=== PATIENT | female | born 1985 | race Caucasian/White ===

== ENCOUNTER → 2017-01-06 | Outpatient (CLI) | payer OTHER ==
[~2017-01-06] MED LIST: IBU600 MG PO; PERCOCET 325 MG1 TA2 PO; PRENATAL MVI
== END ==
LOC: SUN.DIA 08:45
DX: O24.419 Gestational diabetes mellitus in pregnancy, unspecified control (principal); Z3A.34 34 weeks gestation of pregnancy; Z71.3 Dietary counseling and surveillance
CPT/HCPCS: G0108

== ENCOUNTER 2017-02-16 08:50 | Inpatient (IN) | payer OTHER ==
[~2017-02-16] VITALS: Ht 167.6 cm; Wt 143.6 kg
[2017-02-16] VITALS (19 sets, daily range): BP systolic 89–135; BP diastolic 51–77; PULSE 73–91; TEMP 97.6–98.7
[2017-02-16] MEDS ORDERED: PRENATAL MVI (09:10)
[2017-02-16 10:13] LABS: BASO % 0.1 % (0.0-2.0); EOS # 0.1 (0.0-0.7); EOS % 1.4 % (0-4.0); GRAN # 4.9 (1.4-6.5); GRAN % 70.2 % (42.2-75.2); HEMOGLOBIN 12.2 g/dl (12.5-16.0); LYMPH # 1.4 (1.2-3.4); LYMPH % 19.5 % (20.0-51.0); MEAN CELL VOLUME 90 fl (80.0-100.0); MEAN CORPUSCULAR HEMOGLOBIN 31 pg (27.0-31.0); MEAN CORPUSCULAR HGB CONC 34 g/dl (33.0-37.0); MEAN PLATELET VOLUME 13.8 fl (7.4-10.4); MONO # 0.6 (0.1-0.6); MONO % 7.9 % (1.7-9.3); PLATELET COUNT 180 K/mm3 (130-400); RED BLOOD COUNT 3.99 M/mm3 (4.10-5.30); REDCELL DISTRIBUTION WIDTH-CV 12.6 % (11.5-14.5)
[2017-02-16 10:21] LABS: HEMATOCRIT 35.7 % (37.0-47.0)
[2017-02-17 07:11] VITALS: BP 110/60; PULSE 88
[2017-02-17 09:56] LABS: BASO % 0.4 % (0.0-2.0); EOS # 0.1 (0.0-0.7); EOS % 1.8 % (0-4.0); GRAN # 5.9 (1.4-6.5); GRAN % 74.2 % (42.2-75.2); LYMPH # 1.3 (1.2-3.4); MEAN CELL VOLUME 92 fl (80.0-100.0); MEAN CORPUSCULAR HGB CONC 33 g/dl (33.0-37.0); MEAN PLATELET VOLUME 13.6 fl (7.4-10.4); MONO # 0.6 (0.1-0.6); MONO % 7.2 % (1.7-9.3); PLATELET COUNT 167 K/mm3 (130-400); REDCELL DISTRIBUTION WIDTH-CV 12.9 % (11.5-14.5)
[2017-02-17 10:09] LABS: HEMATOCRIT 31.1 % (37.0-47.0); HEMOGLOBIN 10.3 g/dl (12.5-16.0); MEAN CORPUSCULAR HEMOGLOBIN 30 pg (27.0-31.0)
[2017-02-17] MEDS ORDERED: IBU600 MG PO (11:24)
[2017-02-17] MEDS ORDERED: PERCOCET 325 MG1 TA2 PO (11:24)
[2017-02-17 17:05] VITALS: BP 130/79; PULSE 100
[2017-02-17 22:30] VITALS: BP 109/64; PULSE 90; TEMP 98.9
[2017-02-18 07:00] VITALS: BP 118/72; PULSE 98; TEMP 97.8
== END 2017-02-18 12:15 | disposition home or self-care (01) | DRG 766 ==
LOC: LDRO 08:50 → LDR 09:30 → OB 09:30 → LDRO 02-26 11:23
PROVIDERS: Obstetrics & Gynecology
PROC: 10D00Z1 Extraction of Products of Conception, Low, Open Approach (ICD-10-PCS; principal; 2017-02-16)
DX: O75.82 Onset (spontaneous) of labor after 37 completed weeks of gestation but before 39 completed weeks gestation, with delivery by (planned) cesarean section (principal); O34.211 Maternal care for low transverse scar from previous cesarean delivery; N85.8 Other specified noninflammatory disorders of uterus; O24.420 Gestational diabetes mellitus in childbirth, diet controlled; Z3A.38 38 weeks gestation of pregnancy; Z37.0 Single live birth
CPT/HCPCS: J0690; J1885; J2270; J2370; J2405; J2590; J7120

== ENCOUNTER 2018-08-23 11:36 | Emergency (ER) | payer OTHER ==
[~2018-08-23] VITALS: Ht 167.6 cm; Wt 123.6 kg
[2018-08-23 11:43] VITALS: TEMP 98.6
[2018-08-23 12:52] LABS: BASO % 0.1 % (0.0-2.0); EOS # 0.1 (0.0-0.7); EOS % 0.9 % (0-4.0); GRAN # 5.7 (1.4-6.5); GRAN % 74.4 % (42.2-75.2); HEMATOCRIT 37.5 % (37.0-47.0); HEMOGLOBIN 13.1 g/dl (12.5-16.0); LYMPH # 1.3 (1.2-3.4); LYMPH % 17.4 % (20.0-51.0); MEAN CELL VOLUME 84 fl (80.0-100.0); MEAN CORPUSCULAR HEMOGLOBIN 29 pg (27.0-31.0); MEAN CORPUSCULAR HGB CONC 35 g/dl (33.0-37.0); MEAN PLATELET VOLUME 11.9 fl (7.4-10.4); MONO # 0.5 (0.1-0.6); MONO % 6.8 % (1.7-9.3); PLATELET COUNT 232 K/mm3 (130-400); RED BLOOD COUNT 4.48 M/mm3 (4.10-5.30); REDCELL DISTRIBUTION WIDTH-CV 13.4 % (11.5-14.5)
[2018-08-23 12:56] LABS: ACETAMINOPHEN < 10 ug/mL (10-30); ALANINE AMINOTRANSFERASE 17 U/L (9-52); ALBUMIN 3.8 gm/dL (3.5-5.0); ALCOHOL(ethanol),MEDICAL < 10 mg/dL; ALKALINE PHOSPHATASE 67 U/L (50-136); ANION GAP 6 mmol/L (7-16); AST,SGOT 14 U/L (15-37); BILIRUBIN,TOTAL 0.3 mg/dL (0.0-1.0); BLOOD UREA NITROGEN 4 mg/dL (7-17); CALCIUM 9.6 mg/dL (8.4-10.2); CARBON DIOXIDE 23 mmol/L (22-30); CHLORIDE 109 mmol/L (98-107); CREATININE, serum 0.49 mg/dL (0.52-1.25); GLUCOSE 115 mg/dL (74-106); SALICYLATE < 1.0 mg/dL; SODIUM 138 mmol/L (137-145); TOTAL PROTEIN 7.4 gm/dL (6.4-8.2)
[2018-08-23 13:39] LABS: COLLECTION METHOD CLEAN CATCH
[2018-08-23 13:55] LABS: MUCOUS Present /lpf; PH 5 (5-8); URINE APPEARANCE Hazy; URINE BACTERIA Rare /hpf; URINE BILIRUBIN Negative (NEGATIVE); URINE BLOOD Negative (NEGATIVE); URINE COLOR Yellow; URINE GLUCOSE Negative (NEGATIVE); URINE KETONE 2+ (NEGATIVE); URINE LEUKOCYTE ESTERASE Negative (NEGATIVE); URINE NITRATE Negative (NEGATIVE); URINE PROTEIN(semi-quant) Negative (NEGATIVE); URINE RBC 0-2 /hpf; URINE UROBILINOGEN Negative (NEGATIVE)
[2018-08-23 14:09] LABS: TRICYCLIC ANTIDEPRESS URINE NEGATIVE
[2018-08-23] MEDS ORDERED: PROZAC 20MG20 MG PO (16:22)
[2018-08-23 16:46] VITALS: BP 129/79; PULSE 88
--- NOTE | 2018-08-24 07:59 | NUR ---
on 08/23/18, social sciences professor contacted Astrid with [facility] and requested patient's spouse be notified of patient's ED admit and his presence. Spouse was able to leave his duty at [facility] and will be able to be with patient.
== END 2018-08-23 16:46 | disposition home or self-care (01) ==
LOC: COL.ER 11:36
PROVIDERS: Nurse Practitioner
DX: O99.342 Other mental disorders complicating pregnancy, second trimester (principal); F32.9 Major depressive disorder, single episode, unspecified; Z98.890 Other specified postprocedural states; Z90.49 Acquired absence of other specified parts of digestive tract; Z3A.17 17 weeks gestation of pregnancy

== ENCOUNTER → 2018-09-13 | Outpatient (CLI) | payer OTHER ==
[~2018-09-13] MED LIST changes: +PROZAC 20MG20 MG PO
== END ==
LOC: SUN.DIA 12:37
DX: O24.419 Gestational diabetes mellitus in pregnancy, unspecified control (principal); Z3A.21 21 weeks gestation of pregnancy
CPT/HCPCS: G0108

== ENCOUNTER → 2018-10-08 | Outpatient (CLI) | payer OTHER | LOC: SUN.DIA 09-23 11:47 | DX: O24.419 Gestational diabetes mellitus in pregnancy, unspecified control (principal); Z3A.24 24 weeks gestation of pregnancy | CPT/HCPCS: G0108 ==

== ENCOUNTER → 2018-10-12 | Outpatient (CLI) | payer OTHER | LOC: SUN.DIA 08:34 | DX: O24.419 Gestational diabetes mellitus in pregnancy, unspecified control (principal); Z3A.25 25 weeks gestation of pregnancy ==

== ENCOUNTER 2018-10-20 14:59 | Emergency (ER) | payer OTHER ==
[~2018-10-20] VITALS: Ht 167.6 cm; Wt 136.8 kg
[2018-10-20 15:01] VITALS: BP 142/65; TEMP 97.8
[2018-10-20 15:57] LABS: BASO % 0.3 % (0.0-2.0); EOS # 0.1 (0.0-0.7); EOS % 0.9 % (0-4.0); GRAN # 5.6 (1.4-6.5); GRAN % 73.3 % (42.2-75.2); HEMATOCRIT 35.6 % (37.0-47.0); HEMOGLOBIN 11.9 g/dl (12.5-16.0); LYMPH # 1.3 (1.2-3.4); LYMPH % 16.8 % (20.0-51.0); MEAN CELL VOLUME 90 fl (80.0-100.0); MEAN CORPUSCULAR HEMOGLOBIN 30 pg (27.0-31.0); MEAN CORPUSCULAR HGB CONC 33 g/dl (33.0-37.0); MEAN PLATELET VOLUME 11.5 fl (7.4-10.4); MONO # 0.6 (0.1-0.6); PLATELET COUNT 236 K/mm3 (130-400); RED BLOOD COUNT 3.97 M/mm3 (4.10-5.30); REDCELL DISTRIBUTION WIDTH-CV 13.3 % (11.5-14.5)
[2018-10-20 16:12] LABS: ALANINE AMINOTRANSFERASE 16 U/L (9-52); ALBUMIN 3.7 gm/dL (3.5-5.0); ALKALINE PHOSPHATASE 85 U/L (50-136); ANION GAP 6 mmol/L (7-16); AST,SGOT 20 U/L (15-37); BILIRUBIN,TOTAL 0.3 mg/dL (0.0-1.0); BLOOD UREA NITROGEN 3 mg/dL (7-17); CALCIUM 9.2 mg/dL (8.4-10.2); CARBON DIOXIDE 23 mmol/L (22-30); CHLORIDE 106 mmol/L (98-107); CREATININE, serum 0.45 mg/dL (0.52-1.25); GLUCOSE 96 mg/dL (74-106); POTASSIUM 3.8 mmol/L (3.4-5.0); SODIUM 136 mmol/L (137-145); TOTAL PROTEIN 7.3 gm/dL (6.4-8.2)
[2018-10-20 16:16] LABS: ACETAMINOPHEN < 10 ug/mL (10-30); ALCOHOL(ethanol),MEDICAL < 10 mg/dL; SALICYLATE < 1.0 mg/dL
--- NOTE | 2018-10-20 16:54 | NUR ---
AARON and AARON partida responded to ED consult and met with the patient and her four children. At this time, the patient is living alone on [address] with her four children. Her children are 8, 6, 3, 1, and she is now twenty-six weeks . Her , Dewayne, is in the army and is in [place] for work at this time. The patient reports that she does not have any other family/friend support around here. She states that all her family is back in [place]. The patient reports that she came to our ED in the past, due to thoughts of suicide. The patient reports that she is not suicidal or has any thoughts of harm at this time. She states that she was seeing a therapist, Domenica, at [facility] in the past and would be open to going back to [facility]. Screeners from [facility] soon arrived to meet with the patient. AARON and AARON partida attended to the patient's children. After meeting with the patient, the screeners are setting up an outpatient appointment for the patient at [facility]. The patient did request that the ED doctor contact her 's commander. AARON informed the doctor. The ED doctor and the [facility] Screener report that they can write a note for the patient for her to provide to the 's commander. No additional needs at this time.
--- NOTE | 2018-10-20 17:30 | NUR ---
Hayde RN and Rik Hernandez RN to ER to obtain FHR strip. Patient is a G5L4 at 25.6 weeks gestation who presents with complaints of "I'm having a mental breakdown". Patient states her is in [place] with and will be gone for one month. She states she "has no help at home and I just can't take it anymore." When asked about past history patient states she has had anxiety/depression in the past and was on medication for PPD with three year old following delivery. Patient states she has an appt at [facility] tomorrow morning. Denies OB complaints, reports normal movement. Patient encouraged to follow up at [facility] tomorrow and with Dr. Hernandez as scheduled. Difficulty tracing FHR strip continuously due to maternal habitus and movement. Appropriate strip for gestation obtained, verified by 2 RNs. Cleared per OB.
[2018-10-20 18:10] VITALS: PULSE 109
--- NOTE | 2018-10-21 13:07 | NUR ---
AARON rec'd call from patient in regards to a call needing to be made to the [facility]. AARON contacted patient's husbands commander and he provided the information about the that the [facility] cross would need. AARON then contacted the [facility] cross to put a message in. [facility] case #[id number]. AARON also contacted patient again and informed her the message was submitted.
--- NOTE | 2018-10-22 15:06 | NUR ---
The patient contacted the hospital, via phone, and requested to speak to a SW. AARON then contacted the patient. The patient reports that she just got out of her appointment at [facility] and is sitting in her car with her children. SW could here childen in the background. The patient reports that the request to the [place], for the patient's to return home was denied. The patient reports that she feels alone and has no support here. She states that she does not keep in contact with her family in [place] and that her is unable to use his phone. The patient reports that she feels just like she did right before coming into the hospital in the past, due to thoughts of suicide. AARON then notified [facility] [employer]. [facility] was able to locate the patient and they were going to meet the patient and her children in [place]. The dispatcher informed SW that they then might transfer her to [facility] or [facility]. AARON had also contacted [facility] to try and locate the patient. AARON spoke to Benji, Crisis Stablization Marketing Support Assistant. Benji reports that she was the one who met with her for her appointment today, 10/22. Benji reports that the patient was doing fine when she left. Benji reports that he recommends that the patient utilize services on [place] and for the patient to reach out to her family is [place].
== END 2018-10-20 18:13 | disposition home or self-care (01) ==
LOC: COL.ER 14:59
PROVIDERS: Emergency Medicine
DX: O99.342 Other mental disorders complicating pregnancy, second trimester (principal); F32.9 Major depressive disorder, single episode, unspecified; Z91.5 Personal history of self-harm; Z3A.26 26 weeks gestation of pregnancy

== ENCOUNTER 2018-10-22 15:30 | Emergency (ER) | payer OTHER ==
[~2018-10-22] VITALS: Ht 167.6 cm; Wt 136.8 kg
[2018-10-22 16:03] VITALS: TEMP 98.6
[2018-10-22 16:54] LABS: BASO % 0.2 % (0.0-2.0); EOS # 0.1 (0.0-0.7); EOS % 1.4 % (0-4.0); GRAN # 6.4 (1.4-6.5); GRAN % 68.5 % (42.2-75.2); HEMATOCRIT 36.9 % (37.0-47.0); HEMOGLOBIN 12.2 g/dl (12.5-16.0); LYMPH % 21.3 % (20.0-51.0); MEAN CELL VOLUME 90 fl (80.0-100.0); MEAN CORPUSCULAR HEMOGLOBIN 30 pg (27.0-31.0); MEAN CORPUSCULAR HGB CONC 33 g/dl (33.0-37.0); MONO # 0.7 (0.1-0.6); PLATELET COUNT 242 K/mm3 (130-400); RED BLOOD COUNT 4.08 M/mm3 (4.10-5.30); REDCELL DISTRIBUTION WIDTH-CV 13.2 % (11.5-14.5)
[2018-10-22 17:05] LABS: ALANINE AMINOTRANSFERASE 13 U/L (9-52); ALBUMIN 3.7 gm/dL (3.5-5.0); ALKALINE PHOSPHATASE 81 U/L (50-136); ANION GAP 9 mmol/L (7-16); AST,SGOT 15 U/L (15-37); BILIRUBIN,TOTAL 0.3 mg/dL (0.0-1.0); BLOOD UREA NITROGEN 3 mg/dL (7-17); CALCIUM 9.2 mg/dL (8.4-10.2); CARBON DIOXIDE 21 mmol/L (22-30); CHLORIDE 107 mmol/L (98-107); CREATININE, serum 0.43 mg/dL (0.52-1.25); GLUCOSE 89 mg/dL (74-106); POTASSIUM 3.8 mmol/L (3.4-5.0); SODIUM 137 mmol/L (137-145); TOTAL PROTEIN 7.3 gm/dL (6.4-8.2)
[2018-10-22 17:06] LABS: ACETAMINOPHEN < 10 ug/mL (10-30); ALCOHOL(ethanol),MEDICAL < 10 mg/dL; SALICYLATE < 1.0 mg/dL
--- NOTE | 2018-10-22 17:10 | NUR ---
1710-This RN at bedside to run FHR tracing. Pt is a grand multip, 4 children in room with her. Pt denies complications with . Denies VB or LOF. States she has had some mild cramping today. Pt very difficult to monitor due to maternal size and . [id number]- Intermittent tracing noted. FHR baseline 135bpm, accels noted. moderate variability. This RN palpating for UCs, none felt. 1735- Pt's nurse updated about difficult tracing. ED physician updated. would like this RN to call OB to clear patient. 1738- Dr Khan notified of strip. VORB that Pt is cleared by OB. 1745- This RN back to unit, Dr Khan at nurses station. reviews strip and verifies stip and order.
[2018-10-22 19:54] VITALS: BP 126/88; PULSE 88
== END 2018-10-22 19:55 | disposition home or self-care (01) ==
LOC: COL.ER 15:30
PROVIDERS: Physician Assistant
DX: F32.9 Major depressive disorder, single episode, unspecified (principal); R45.851 Suicidal ideations

== ENCOUNTER 2019-01-14 07:41 | Inpatient (IN) | payer OTHER ==
[2019-01-14] VITALS (18 sets, daily range): BP systolic 74–132; BP diastolic 37–86; PULSE 60–96
[~2019-01-14] VITALS: Ht 167.7 cm; Wt 145.5 kg
--- NOTE | 2019-01-14 09:00 | NUR ---
Patient to unit for scheduled , orientated to room, assesment completed, IV started in Left hand, labs obtained and fluids started. Patient resting comfortably in bed. Prepped for surgery consents obtained. Patient denies any leaking of fluid or bleeding. Patient denies any questions or concerns.
[2019-01-14] MEDS ORDERED: DIABETA 5MG5 MG/TAB PO (09:26)
[2019-01-14 09:39] LABS: BASO % 0.4 % (0.0-2.0); EOS # 0.1 (0.0-0.7); EOS % 1.5 % (0-4.0); GRAN # 5.1 (1.4-6.5); GRAN % 64.8 % (42.2-75.2); HEMOGLOBIN 11.6 g/dl (12.5-16.0); LYMPH # 1.9 (1.2-3.4); LYMPH % 24.1 % (20.0-51.0); MEAN CELL VOLUME 86 fl (80.0-100.0); MEAN CORPUSCULAR HEMOGLOBIN 29 pg (27.0-31.0); MEAN CORPUSCULAR HGB CONC 33 g/dl (33.0-37.0); MEAN PLATELET VOLUME 12.8 fl (7.4-10.4); MONO # 0.7 (0.1-0.6); MONO % 8.7 % (1.7-9.3); PLATELET COUNT 210 K/mm3 (130-400); RED BLOOD COUNT 4.07 M/mm3 (4.10-5.30); REDCELL DISTRIBUTION WIDTH-CV 13.2 % (11.5-14.5)
[2019-01-14 09:47] LABS: HEMATOCRIT 34.8 % (37.0-47.0)
[2019-01-15 04:30] VITALS: BP 95/48; PULSE 79
[2019-01-15 06:03] LABS: BASO % 0.3 % (0.0-2.0); EOS # 0.1 (0.0-0.7); EOS % 1.6 % (0-4.0); GRAN # 5.6 (1.4-6.5); GRAN % 75.5 % (42.2-75.2); HEMOGLOBIN 10.2 g/dl (12.5-16.0); LYMPH # 1.1 (1.2-3.4); LYMPH % 14.5 % (20.0-51.0); MEAN CELL VOLUME 86 fl (80.0-100.0); MEAN CORPUSCULAR HEMOGLOBIN 28 pg (27.0-31.0); MEAN CORPUSCULAR HGB CONC 33 g/dl (33.0-37.0); MEAN PLATELET VOLUME 12.7 fl (7.4-10.4); MONO # 0.6 (0.1-0.6); MONO % 7.4 % (1.7-9.3); PLATELET COUNT 149 K/mm3 (130-400); RED BLOOD COUNT 3.63 M/mm3 (4.10-5.30); REDCELL DISTRIBUTION WIDTH-CV 13.2 % (11.5-14.5)
[2019-01-15 06:04] LABS: HEMATOCRIT 31.2 % (37.0-47.0)
[2019-01-15 08:32] VITALS: BP 132/80; PULSE 87; TEMP 98.2
[2019-01-15 12:30] VITALS: BP 125/73; PULSE 88; TEMP 97.9
--- NOTE | 2019-01-15 18:44 | NUR ---
BEDSIDE REPORT RECIEVED, CARE ASSUMED BY THIS RN
[2019-01-15 21:25] VITALS: BP 110/86; PULSE 96; TEMP 98
[2019-01-16 07:00] VITALS: BP 123/65; PULSE 99; TEMP 97.6
[2019-01-16] MEDS ORDERED: MOTRIN 800800 MG/TAB PO (09:32)
[2019-01-16] MEDS ORDERED: PERCOCET 325 MG1 TA2 PO (09:33)
--- NOTE | 2019-01-16 11:00 | NUR ---
Patient given discharge instructions/agrees and understands. Patient signs papers. 1115: Patient ambulatory off unit per this RN and spouse.
== END 2019-01-16 11:15 | disposition home or self-care (01) | DRG 788 ==
LOC: OB 07:41
PROVIDERS: ADMIT Obstetrics & Gynecology
PROC: 10D00Z1 Extraction of Products of Conception, Low, Open Approach (ICD-10-PCS; principal; 2019-01-14)
DX: O24.425 Gestational diabetes mellitus in childbirth, controlled by oral hypoglycemic drugs (principal); F32.9 Major depressive disorder, single episode, unspecified; O40.3XX0 Polyhydramnios, third trimester, not applicable or unspecified; O99.344 Other mental disorders complicating childbirth; F41.9 Anxiety disorder, unspecified; O34.211 Maternal care for low transverse scar from previous cesarean delivery; O99.214 Obesity complicating childbirth; O69.1XX0 Labor and delivery complicated by cord around neck, with compression, not applicable or unspecified; Z3A.38 38 weeks gestation of pregnancy; Z37.0 Single live birth
CPT/HCPCS: J0690; J1885; J2250; J2370; J2405; J2590; J3010; J7120

== ENCOUNTER → 2020-01-18 | Outpatient (CLI) | payer OTHER ==
[~2020-01-18] MED LIST changes: +DIABETA 5MG5 MG/TAB PO; +MOTRIN 800800 MG/TAB PO
== END ==
LOC: COL.VAS 12:06
DX: R00.2 Palpitations (principal)

== ENCOUNTER 2020-02-06 06:33 | Inpatient (IN) | payer OTHER ==
[~2020-02-06] VITALS: Ht 167.6 cm; Wt 146.8 kg
[2020-02-06] VITALS (19 sets, daily range): BP systolic 88–141; BP diastolic 52–89; PULSE 72–117; TEMP 98–98.2
[2020-02-06] MEDS ORDERED: GLUCOPHAGE1000 MG PO (10:07)
[2020-02-06] MEDS ORDERED: NOVOLIN N100 U/ML SQ (10:08)
[2020-02-06] MEDS ORDERED: PERCOCET 325 MG1 TA2 PO (10:11)
[2020-02-06] MEDS ORDERED: MOTRIN 800800 MG/TAB PO (10:11)
--- NOTE | 2020-02-06 10:11 | NUR ---
PT REPORTS SROM AT 0845 WITH LARGE AMOUNT OF BLOODY FLUID. PT ARRIVES TO UNIT VIA EMS AT 0942. DR [id number] IN AT 0950. SVE /1. FSE APPLIED BY DR MISHRA UNABLE TO MONITOR FHT'S. FHT'S WITH MINIMAL VARIABILITY, NO ACCELS, AND IN THE 160'S. PT PREPPED FOR . ASSESSMENT COMPLETED, CONSENTS SIGNED, AND AT BEDSIDE. BLOOD GLUCOSE 106 AT 0955.
[2020-02-06 10:12] LABS: BASO % 0.3 % (0.0-2.0); EOS % 0.4 % (0-4.0); GRAN # 7.9 (1.4-6.5); GRAN % 77.1 % (42.2-75.2); HEMOGLOBIN 10.1 g/dl (12.5-16.0); LYMPH # 1.5 (1.2-3.4); LYMPH % 14.6 % (20.0-51.0); MEAN CELL VOLUME 88 fl (80.0-100.0); MEAN CORPUSCULAR HEMOGLOBIN 29 pg (27.0-31.0); MEAN CORPUSCULAR HGB CONC 33 g/dl (33.0-37.0); MEAN PLATELET VOLUME 13.8 fl (7.4-10.4); MONO # 0.7 (0.1-0.6); MONO % 6.8 % (1.7-9.3); PLATELET COUNT 180 K/mm3 (130-400); RED BLOOD COUNT 3.53 M/mm3 (4.10-5.30); REDCELL DISTRIBUTION WIDTH-CV 13.2 % (11.5-14.5)
[2020-02-06 10:23] LABS: ALBUMIN 3.2 gm/dL (3.5-5.0); BILIRUBIN,TOTAL 0.3 mg/dL (0.0-1.0); CALCIUM 8.9 mg/dL (8.4-10.2); CREATININE, serum 0.69 (0.52-1.25); HEMATOCRIT 30.9 % (37.0-47.0); POTASSIUM 4.6 mmol/L (3.4-5.0); TOTAL PROTEIN 6.6 gm/dL (6.4-8.2)
--- NOTE | 2020-02-06 10:45 | NUR ---
0945-PT ARRIVES VIA EMS AFTER SROM AT 0845 THIS MORNING WITH BRIGHT RED BLOODY FLUID. IV STARTED BY EMS IN LEFT AC WITH LR INFUSING. 0950-DR MSIHRA IN TO ASSESS PT. SVE /-2. FSE APPLIED BY DR MISHRA UNABLE TO MONITOR FHT'S EXTERNALLY. DR MISHRA ORDERS URGENT . 0955-IVF CHANGED TO NS PER DR MISHRA 1005-BLOOD GLUCOSE 106 FHT'S WITH MINIMAL VARIABILITY AND NO ACCELS. TO OPERATING ROOM VIA BED AT 1015. 1020-PT HOOKED BACK UP TO HEART MONITOR. FHT'S REMAIN WITH MINIMAL VARIABILITY AND NO ACCELS. PT PREPPED AND POSITIONED FOR . DELIVERY OF MALE INFANT AT 1044 AND DELIVERY OF PLACENTA AT 1045. NOTED TO HAVE LARGE AMOUNT OF CLOTS AND BLEEDING WHEN UTERUS OPENED BY DR MISHRA.
--- NOTE | 2020-02-06 11:35 | NUR ---
PT ADMITTED TO PACU AFTER DISCHARGE FROM OPERATING ROOM. PT AWAKE AND ALERT. ASSESSMENT COMPLETED. FUNDUS FIRM WITH MINIMAL BLEEDING OBSERVED. IV FLUID BOLUS OF NS INFUSING URINE IS AN LAKESHIA COLOR. PT DENIES PAIN.
--- NOTE | 2020-02-06 13:00 | NUR ---
PT TEARFUL BABY IS BEING TRANSPORTED TO [facility]. DR VILLAGOMEZ SPOKE WITH FAMILY IN PACU DISCUSSING THE NEED FOR TRANSFER. QUESTIONS ANSWERED. GREGORY DRAINING SMALL AMOUNT OF DARK YELLOW/LAKESHIA URINE. NEW BAG OF NS HUNG AND BOLUS INFUSING.
--- NOTE | 2020-02-06 15:17 | NUR ---
PT RESTING IN BED. REPORTING PAIN 03/26. 2 PERCOCET GIVEN AT THIS TIME.
--- NOTE | 2020-02-06 23:30 | NUR ---
BS 212 2HRS AFTER NPH. HAS HAD CREAMER AND COFFEE
[2020-02-07 07:23] VITALS: BP 129/71; PULSE 78; TEMP 97.9
--- NOTE | 2020-02-07 09:41 | NUR ---
PP Blood sugar noted to be 193. Pt stated it was closer to 8 when she ate. Will retake PP blood sugar in approx 20 min to be closer to 2 hours PP.
--- NOTE | 2020-02-07 10:22 | NUR ---
PP BLOOD SUGAR 175
[2020-02-07] MEDS ORDERED: NOVOLIN N100 U/ML SQ (12:21)
== END 2020-02-07 14:37 | disposition home or self-care (01) | DRG 788 ==
LOC: OB 06:33
PROVIDERS: ADMIT Obstetrics & Gynecology
PROC: 10D00Z1 Extraction of Products of Conception, Low, Open Approach (ICD-10-PCS; principal; 2020-02-06)
DX: O34.211 Maternal care for low transverse scar from previous cesarean delivery (principal); O99.214 Obesity complicating childbirth; E66.01 Morbid (severe) obesity due to excess calories; O24.425 Gestational diabetes mellitus in childbirth, controlled by oral hypoglycemic drugs; O76 Abnormality in fetal heart rate and rhythm complicating labor and delivery; O99.344 Other mental disorders complicating childbirth; F32.9 Major depressive disorder, single episode, unspecified; F41.9 Anxiety disorder, unspecified; Z90.49 Acquired absence of other specified parts of digestive tract; Z3A.38 38 weeks gestation of pregnancy; Z37.0 Single live birth
CPT/HCPCS: J0690; J1100; J1815; J2210; J2370; J2405; J2590; J7030